=== PATIENT | female | born 1990 | race Caucasian/White ===

== ENCOUNTER 2017-03-09 15:26 | Emergency (ER) | payer MEDICARE ==
[~2017-03-09] VITALS: Ht 172.7 cm; Wt 81.6 kg
[2017-03-09 16:30] VITALS: BP_SYST 109
[2017-03-09 18:31] LABS: BILIRUBIN,URINE NEGATIVE (NEGATIVE); CLARITY/URINE CLEAR (CLEAR); COLOR,URINE YELLOW (YELLOW); GLUCOSE,URINE NEGATIVE (NEGATIVE); KETONES,URINE NEGATIVE (NEGATIVE); LEUKOCYTE ESTERASE ,URINE NEGATIVE (NEGATIVE); NITRITE, URINE NEGATIVE (NEGATIVE); PROTEIN URINE NEGATIVE (NEGATIVE); UROBILINOGEN,URINE 0.2 (0.2-1.0)
[2017-03-09 18:33] LABS: BLOOD, URINE TRACE (NEGATIVE)
[2017-03-09 18:39] LABS: BACTERIA,URINE FEW /HPF (None Seen); MUCUS,URINE None Seen /LPF (None Seen); RBC,URINE 0-3 /HPF (0-3); WBC,URINE 0-3 /HPF (0-3)
--- NOTE | 2017-03-09 18:52 | NUR ---
Patient to ER bed H1 to gown for evaluation. Side rails up.
--- NOTE | 2017-03-09 19:22 | NUR ---
PT IN [facility] WITH C/O ABDOMINAL/PELVIC PAIN , DR HARDEN AWARE.
--- NOTE | 2017-03-09 19:22 | NUR ---
Care endorsed to JUSTINO Sanchez
--- NOTE | 2017-03-09 19:23 | NUR ---
ER at bedside examining patient.
[2017-03-09 20:01] VITALS: BP_SYST 118
--- NOTE | 2017-03-09 20:02 | NUR ---
Patient given written and verbal discharge instructions and verbalizes understanding. ER MD discussed with patient the results and treatment provided. Patient in stable condition. ID arm band removed. Rx of MACROBID,IBUPROFEN given. Patient educated on pain management and to follow up with PMD. Pain Scale 4/10. Opportunity for questions provided and answered.
== END 2017-03-09 20:01 | disposition home or self-care (01) ==
LOC: SED 15:26
DX: N39.0 Urinary tract infection, site not specified (principal); Z98.51 Tubal ligation status
CPT/HCPCS: 76857; 81000-TC; 81025; 99285